=== PATIENT | male | born 1935 | race Caucasian/White ===

== ENCOUNTER → 2017-05-01 | Outpatient (CLI) | payer MEDICARE, OTHER ==
[2017-05-01 11:57] LABS: Blood Urea Nitrogen 24 mg/dL (9-20); Non-African American GFR(MDRD) 53 (>60 ml/min/1.73 sqM)
--- NOTE | 2017-05-01 13:43 | CT ---
EXAMINATION TYPE: CT abdomen pelvis w con DATE OF EXAM: 05/01/2017 COMPARISON: 08/12/2013 HISTORY: Per patient son Liver cyst found on US CT DLP: 824.6 mGycm Automated exposure control for dose reduction was used. TECHNIQUE: Helical acquisition of images was performed from the lung bases through the pelvis. CONTRAST: Performed without Oral Contrast and with IV Contrast, patient injected with 80 mL of Visipaque 320. FINDINGS: LUNG BASES: Moderate centrilobular and paraseptal emphysematous changes are seen as well as subcentim eter areas of nodularity in the subpleural right lower lobe which are sub-3 mm. Single calcified gran uloma and right hilar calcified lymph node is seen. Chronic atelectasis is present within the lingula . Heart is not enlarged. LIVER/GB: The large previously seen right lobe hepatic cyst has decreased in size in the interim and may have ruptured or may be post surgical intervention. The largest cystic area measures 1.8 cm. Nume marlee other hepatic cysts are seen with other lesions that are too small to accurately characterize. The largest hemangioma in the left hepatic lobe demonstrates peripheral discontinuous nodular enhance ment and is only minimally increased in size in comparison to exam of 08/12/2013 where it measured 1.7 cm and now measures 2.2 cm. Some lesions or intrahepatic dome are too small to accurately characteri ze but likely represent hepatic cysts. Other smaller hemangiomas seen in segment 8 on series 3 image 20 measuring 1.1 cm. Ill-defined hypoattenuating lesion on series 3 image 20 within the right lobe of the liver anterior to hepatic cyst is stable from the prior exam of 08/12/2013 seen on series 3 image 17. No suspicious hepatic mass is identified. The gallbladder is unremarkable. PANCREAS: No significant abnormality is seen. SPLEEN: Punctate calcific granulomas noted. ADRENALS: Bilateral nodularity is appreciated with 1.9 cm rate sided nodule emanating from the inferi or álvaro, soft tissue density and overall enlargement of the right adrenal gland with nodularity seen on series 3 image 21 of the left measuring 8 mm. KIDNEYS: There is continued enlargement of the suspicious macrolobulated, centrally necrotic exophyti c right renal mass measuring 5.9 x 5.8 x 8.1 cm and previously measuring 4.8 x 4.0 x 4.9 cm. Simple right upper pole renal cyst and multiple cortical lesions are hypoattenuated and too small to accurately characterize but statistically represent renal cysts are seen. There is mild left cortical renal thinning. FREE AIR: No free air is visualized. RETROPERITONEAL ADENOPATHY: None visualized REPRODUCTIVE ORGANS: The prostate gland is heterogenous and enlarged measuring 6.0 cm. URINARY BLADDER: No significant abnormality is seen. PELVIC ADENOPATHY: None visualized. OSSEOUS STRUCTURES: Probable vertebral hemangioma is seen at L5. There is loss of the intervertebral disc space at L4-L5 with degenerative change and slight lucency of the L4 vertebral body, indetermin ate. Additional Schmorl's node is seen of the superior endplate of L3 with intervertebral disc height loss of L2-L3 and L5-S1.. BOWEL: No significant abnormality is seen. OTHER: Calcific and noncalcific mural plaquing is seen of the abdominal aorta with redemonstration of a fusiform infrarenal abdominal aortic aneurysm measuring 3.3 x 3.3 x 2.8 cm at the level of the ROSALINDA . IMPRESSION: 1. EXOPHYTIC, COMPLEX, MACROLOBULATED RIGHT LOWER POLE PARTIALLY EXOPHYTIC RENAL LESION THAT SHOULD B E CONSIDERED RENAL CELL CARCINOMA UNTIL PROVEN OTHERWISE. THERE IS CONTINUED ENLARGEMENT FROM THE [facility] OR EXAM OF 08/12/2013. NO CURRENT EVIDENCE OF RENAL VEIN THROMBOSIS. THIS DOES OBLITERATE THE INFERIOR CALYCES. NO SURROUNDING ADENOPATHY IS SEEN. 2. NUMEROUS HEPATIC CYSTS AND HEMANGIOMAS. NO SUSPICIOUS HEPATIC LESION. 3. ENLARGED AND HETEROGENOUS PROSTATE GLAND. 4. MODERATE CENTRILOBULAR AND PARASEPTAL EMPHYSEMATOUS CHANGES IN THE LUNG BASES. 5. INDETERMINATE ADRENAL GLAND NODULES. A [place] message has been communicated to Brian Brown MD via the [employer] Critical Result system on 05/01/2017 1:40 PM, Message ID [id number].
== END | disposition home or self-care (01) ==
LOC: RADCTMAIN 11:13
PROVIDERS: ATTEND Family Medicine
DX: C64.9 Malignant neoplasm of unspecified kidney, except renal pelvis (principal); N40.0 Benign prostatic hyperplasia without lower urinary tract symptoms; D18.00 Hemangioma unspecified site; K76.89 Other specified diseases of liver; R93.5 Abnormal findings on diagnostic imaging of other abdominal regions, including retroperitoneum
CPT/HCPCS: 82565; 84520; 74177; 36415; Q9967